=== PATIENT | male | born 1940 | race American Indian/Alaskan Native ===

== ENCOUNTER 2016-07-14 08:46 | Outpatient (CLI) | payer MEDICARE ==
[2016-07-14] MEDS ORDERED: XYLOCAINE TOPICAL 4% TP ONE (09:09)
== END 2016-07-14 08:47 | disposition home or self-care (01) ==
LOC: WOUND 08:46
PROVIDERS: ATTEND Podiatrist
DX: T87.89 Other complications of amputation stump (principal); E11.622 Type 2 diabetes mellitus with other skin ulcer; L97.811 Non-pressure chronic ulcer of other part of right lower leg limited to breakdown of skin; I10 Essential (primary) hypertension; F03.90 Unspecified dementia, unspecified severity, without behavioral disturbance, psychotic disturbance, mood disturbance, and anxiety; E78.5 Hyperlipidemia, unspecified; Z86.73 Personal history of transient ischemic attack (TIA), and cerebral infarction without residual deficits; Z87.891 Personal history of nicotine dependence; Z89.512 Acquired absence of left leg below knee; Y83.5 Amputation of limb(s) as the cause of abnormal reaction of the patient, or of later complication, without mention of misadventure at the time of the procedure
CPT/HCPCS: 87075; 87116

== ENCOUNTER 2016-07-21 08:39 | Outpatient (CLI) | payer MEDICARE ==
[2016-07-21] MEDS ORDERED: XYLOCAINE TOPICAL 4% TP ONE ×2 (09:04→14:03)
== END 2016-07-21 08:40 | disposition home or self-care (01) ==
LOC: WOUND 08:39
PROVIDERS: ATTEND Surgery
DX: T87.89 Other complications of amputation stump (principal); E11.622 Type 2 diabetes mellitus with other skin ulcer; L97.811 Non-pressure chronic ulcer of other part of right lower leg limited to breakdown of skin; I10 Essential (primary) hypertension; E78.5 Hyperlipidemia, unspecified; F15.90 Other stimulant use, unspecified, uncomplicated; F03.90 Unspecified dementia, unspecified severity, without behavioral disturbance, psychotic disturbance, mood disturbance, and anxiety; Z86.73 Personal history of transient ischemic attack (TIA), and cerebral infarction without residual deficits; Z87.891 Personal history of nicotine dependence; Y83.5 Amputation of limb(s) as the cause of abnormal reaction of the patient, or of later complication, without mention of misadventure at the time of the procedure

== ENCOUNTER 2016-08-05 08:00 | Outpatient (CLI) | payer MEDICARE ==
[2016-08-05] MEDS ORDERED: XYLOCAINE TOPICAL 4% TP ONE ×2 (08:35→09:00)
== END 2016-08-05 08:01 | disposition home or self-care (01) ==
LOC: WOUND 08:00
PROVIDERS: ATTEND Surgery
DX: T87.89 Other complications of amputation stump (principal); E11.622 Type 2 diabetes mellitus with other skin ulcer; L97.812 Non-pressure chronic ulcer of other part of right lower leg with fat layer exposed; F03.90 Unspecified dementia, unspecified severity, without behavioral disturbance, psychotic disturbance, mood disturbance, and anxiety; I10 Essential (primary) hypertension; E78.5 Hyperlipidemia, unspecified; Z86.73 Personal history of transient ischemic attack (TIA), and cerebral infarction without residual deficits; Z87.891 Personal history of nicotine dependence; Y83.5 Amputation of limb(s) as the cause of abnormal reaction of the patient, or of later complication, without mention of misadventure at the time of the procedure

== ENCOUNTER 2016-08-12 08:20 | Outpatient (CLI) | payer MEDICARE ==
[2016-08-12] MEDS ORDERED: XYLOCAINE TOPICAL 4% TP ONE ×2 (08:40→10:00)
== END 2016-08-12 08:21 | disposition home or self-care (01) ==
LOC: WOUND 08:20
PROVIDERS: ATTEND Surgery
DX: T87.89 Other complications of amputation stump (principal); E11.622 Type 2 diabetes mellitus with other skin ulcer; L97.812 Non-pressure chronic ulcer of other part of right lower leg with fat layer exposed; F03.90 Unspecified dementia, unspecified severity, without behavioral disturbance, psychotic disturbance, mood disturbance, and anxiety; I10 Essential (primary) hypertension; E78.5 Hyperlipidemia, unspecified; Z86.73 Personal history of transient ischemic attack (TIA), and cerebral infarction without residual deficits; Z87.891 Personal history of nicotine dependence; Y83.5 Amputation of limb(s) as the cause of abnormal reaction of the patient, or of later complication, without mention of misadventure at the time of the procedure
CPT/HCPCS: 99214; G0463

== ENCOUNTER 2016-08-28 09:26 | Outpatient (CLI) | payer MEDICARE ==
[2016-08-28] MEDS ORDERED: XYLOCAINE TOPICAL 4% TP ONE (10:02)
== END 2016-08-28 09:27 | disposition home or self-care (01) ==
LOC: WOUND 09:26
PROVIDERS: ATTEND Podiatrist
DX: T87.89 Other complications of amputation stump (principal); E11.622 Type 2 diabetes mellitus with other skin ulcer; L97.813 Non-pressure chronic ulcer of other part of right lower leg with necrosis of muscle; F03.90 Unspecified dementia, unspecified severity, without behavioral disturbance, psychotic disturbance, mood disturbance, and anxiety; I10 Essential (primary) hypertension; E78.5 Hyperlipidemia, unspecified; Z86.73 Personal history of transient ischemic attack (TIA), and cerebral infarction without residual deficits; Z87.891 Personal history of nicotine dependence; Y83.5 Amputation of limb(s) as the cause of abnormal reaction of the patient, or of later complication, without mention of misadventure at the time of the procedure

== ENCOUNTER 2016-09-16 08:00 | Outpatient (CLI) | payer MEDICARE ==
[2016-09-16] MEDS ORDERED: XYLOCAINE TOPICAL 4% TP ONE ×2 (08:19→08:25)
[2016-09-16] MEDS ORDERED: SILVER NITRATE TP ONE ×2 (08:30→09:06)
== END 2016-09-16 08:01 | disposition home or self-care (01) ==
LOC: WOUND 08:00
PROVIDERS: ATTEND Surgery
DX: T87.89 Other complications of amputation stump (principal); E11.621 Type 2 diabetes mellitus with foot ulcer; L97.511 Non-pressure chronic ulcer of other part of right foot limited to breakdown of skin; F03.90 Unspecified dementia, unspecified severity, without behavioral disturbance, psychotic disturbance, mood disturbance, and anxiety; I10 Essential (primary) hypertension; E78.5 Hyperlipidemia, unspecified; Z86.73 Personal history of transient ischemic attack (TIA), and cerebral infarction without residual deficits; Z87.891 Personal history of nicotine dependence; Y83.5 Amputation of limb(s) as the cause of abnormal reaction of the patient, or of later complication, without mention of misadventure at the time of the procedure

== ENCOUNTER 2016-09-21 08:49 | Emergency (ER) | payer MEDICARE ==
[2016-09-21] MEDS ORDERED: NACL 0.9% 1000 ML 1,000 ML IV ONE (09:29)
--- NOTE | 2016-09-21 09:31 | Emergency Department Report ---
ED General Adult HPI - General Chief complaint: Hypoglycemia Stated complaint: HYPOGLYCEMIA Time Seen by Provider: 09/21/16 09:12 Source: patient, EMS Mode of arrival: Stretcher Limitations: No Limitations - History of Present Illness Initial comments: Patient was at home and EMS was called due to confusion. On EMS arrival patient 's blood sugar was 25 and he was combative. Patient was restrained by EMS. Once he was restrained they were able to obtain IV and gave him D50. His glucose here on arrival is 135 he has no complaints currently. He states that h he was given his insulin this morning but he did not eat. He otherwise appears at his baseline. He denies fevers chills nausea vomiting diarrhea. -: Sudden Radiation: non-radiation Consistency: now resolved Improves with: eating Worsens with: none Associated Symptoms: confusion, diaphoresis, weakness. denies: nausea/vomiting Treatments Prior to Arrival: other (D50) - Related Data Previous Rx's Medication Instructions Recorded Last Taken Type Insulin Glargine [Lantus VIAL] 20 units SQ QHS #300 units 06/04/16 Unknown Rx Insulin Lispro [HumaLOG VIAL] 6 units SQ BIDAC #300 vial 06/04/16 Unknown Rx Lisinopril [Zestril TAB] 40 mg PO QDAY #30 tablet 06/04/16 Unknown Rx amLODIPine [Norvasc] 10 mg PO DAILY #30 tablet 06/04/16 Unknown Rx Allergies Allergy/AdvReac Type Severity Reaction Status Date / Time No Known Allergies Allergy Unverified 03/11/13 13:46 ED Review of Systems ROS: Stated complaint: HYPOGLYCEMIA Other details as noted in HPI Constitutional: no symptoms reported, see HPI Eyes: denies: eye pain, eye discharge ENT: denies: ear pain, throat pain Respiratory: denies: see HPI, cough Cardiovascular: denies: chest pain, dyspnea on exertion Gastrointestinal: denies: abdominal pain, nausea, vomiting Musculoskeletal: denies: back pain Neurological: as per HPI, confusion. denies: headache, weakness Psychiatric: denies: anxiety, depression ED Past Medical Hx - Past Medical History Previous Medical History?: Yes Hx CVA: Yes Hx Diabetes: Yes Hx Dementia: Yes Hx HIV: No Additional medical history: ichtheosis - Surgical History Past Surgical History?: Yes Additional Surgical History: bilat bka - Social History Smoking Status: Never Smoker Substance Use Type: None - Medications Home Medications: Home Medications Medication Instructions Recorded Confirmed Last Taken Type Insulin Glargine [Lantus VIAL] 20 units SQ QHS #300 units 06/04/16 Unknown Rx Insulin Lispro [HumaLOG VIAL] 6 units SQ BIDAC #300 vial 06/04/16 Unknown Rx Lisinopril [Zestril TAB] 40 mg PO QDAY #30 tablet 06/04/16 Unknown Rx amLODIPine [Norvasc] 10 mg PO DAILY #30 tablet 06/04/16 Unknown Rx ED Physical Exam - General Limitations: No Limitations General appearance: alert, in no apparent distress - Head Head exam: Present: atraumatic, normocephalic - Eye Eye exam: Present: normal appearance, PERRL - ENT ENT exam: Present: normal exam, normal orophraynx - Respiratory Respiratory exam: Present: normal lung sounds bilaterally, respiratory distress - Cardiovascular Cardiovascular Exam: Present: regular rate, normal rhythm - GI/Abdominal GI/Abdominal exam: Present: soft. Absent: distended, tenderness - Extremities Exam Extremities exam: Present: other (his arms are contracted. He has bilateral AKA 's.) - Back Exam Back exam: Absent: tenderness - Neurological Exam Neurological exam: Present: alert, oriented X3 - Psychiatric Psychiatric exam: Present: normal affect, normal mood - Skin Skin exam: Present: warm, dry ED Course Vital Signs 09/21/16 09/21/16 09/21/16 09:12 11:37 13:02 Temperature 97.9 F Pulse Rate 98 H 94 H Respiratory 16 16 16 Rate Blood Pressure 179/98 Blood Pressure 163/85 [Left] O2 Sat by Pulse 98 98 Oximetry ED Medical Decision Making - Lab Data Result diagrams: 09/21/16 09:34 09/21/16 09:34 Laboratory Results - last 24 hr 09/21/16 09/21/16 09/21/16 09:08 09:34 09:34 WBC 8.1 RBC 4.91 Hgb 13.1 Hct 39.2 MCV 80 L MCH 27 L MCHC 33 RDW 17.4 H Plt Count 462 H Lymph % (Auto) 17.4 Mckenzie % (Auto) 5.8 Eos % (Auto) 2.1 Baso % (Auto) 0.7 Lymph # 1.4 Mckenzie # 0.5 Eos # 0.2 Baso # 0.1 Seg Neutrophils % 74.0 H Seg Neutrophils # 6.0 Sodium 143 Potassium 4.2 Chloride 106.4 Carbon Dioxide 24 Anion Gap 17 BUN 19 Creatinine 0.9 Estimated GFR > 60 BUN/Creatinine Ratio 21.11 Glucose 116 H POC Glucose 135 H Calcium 9.2 Laboratory Results - last 24 hr 09/21/16 09/21/16 09/21/16 09:08 09:34 09:34 WBC 8.1 RBC 4.91 Hgb 13.1 Hct 39.2 MCV 80 L MCH 27 L MCHC 33 RDW 17.4 H Plt Count 462 H Lymph % (Auto) 17.4 Mckenzie % (Auto) 5.8 Eos % (Auto) 2.1 Baso % (Auto) 0.7 Lymph # 1.4 Mckenzie # 0.5 Eos # 0.2 Baso # 0.1 Seg Neutrophils % 74.0 H Seg Neutrophils # 6.0 Sodium 143 Potassium 4.2 Chloride 106.4 Carbon Dioxide 24 Anion Gap 17 BUN 19 Creatinine 0.9 Estimated GFR > 60 BUN/Creatinine Ratio 21.11 Glucose 116 H POC Glucose 135 H Calcium 9.2 - Medical Decision Making Patient is a 76-year-old male with chronic medical issues she is here with hypoglycemic episode. Episode is now resolved. I suspect this is likely due to insulin administration without food consumption. Patient denies any current complaints. Plan to check CBC chemistry and UA along with chest x-ray to confirm that there are no other sources for his hyperglycemia. Assuming he is her normal plan to discharge patient home. Discussed case with patient did not eat this morning. He did not get insulin this morning according to the . He has had this happen before. Plan to discharge after UA. UA with several epithelial cells and WBCs. I think this is likely a colonization versus a poor catch. I do not suspect that he has UTI given no dysuria or no pain. I will not treat at this time. Critical Care Time: No Critical care attestation.: If time is entered above; I have spent that time in minutes in the direct care of this critically ill patient, excluding procedure time. ED Disposition Clinical Impression: Hypoglycemia Disposition: DC-01 TO HOME OR SELFCARE Is pt being admited?: No Does the pt Need Aspirin: No Condition: Stable Instructions: Diabetic Hypoglycemia (ED) Referrals: PRIMARY CARE, [Primary Care Provider] - 3-5 Days
[2016-09-21 09:57] LABS: Basophils % (Auto) 0.7 % (0.0-1.8); Eosinophils % (Auto) 2.1 % (0.0-4.3); Hematocrit 39.2 % (35.5-45.6); Hemoglobin 13.1 gm/dl (11.8-15.2); Mean Corpuscular HGB Conc 33 % (32-34); Mean Corpuscular Hemoglobin 27 pg (28-32); Mean Corpuscular Volume 80 fl (84-94); Platelet Count 462 K/mm3 (140-440); Red Blood Count 4.91 M/mm3 (3.65-5.03); Red Cell Distribution Width 17.4 % (13.2-15.2); White Blood Count 8.1 K/mm3 (4.5-11.0)
--- NOTE | 2016-09-21 10:03 | XRay Report ---
AP CHEST: Dizzy AP view of the chest demonstrates a normal mediastinal and cardiac contour with clear lungs and normal bony and soft tissue structures. IMPRESSION: Normal AP chest.
[2016-09-21 10:08] LABS: Anion Gap 17 mmol/L; BUN/Creatinine Ratio 21.11; Blood Urea Nitrogen 19 mg/dL (9-20); Calcium 9.2 mg/dL (8.4-10.2); Carbon Dioxide 24 mmol/L (22-30); Chloride 106.4 mmol/L (98-107); Glucose 116 mg/dL (75-100); Potassium 4.2 mmol/L (3.6-5.0); Sodium 143 mmol/L (137-145)
[2016-09-21 13:01] LABS: Bacteria,Urine 1+ /HPF (Negative); Bilirubin,Urine NEG (Negative); Blood,Urine NEG (Negative); Ketones,Urine NEG (Negative); Leukocyte Esterase,Urine NEG (Negative); Mucus,Urine FEW /HPF; Nitrite,Urine NEG (Negative); Protein,Urine <15 mg/dL mg/dL (Negative); Urobilinogen,Urine < 2.0 mg/dL (<2.0)
[2016-09-21 13:03] VITALS: BP 163/85
== END 2016-09-21 14:22 | disposition home or self-care (01) ==
LOC: ED 08:49
DX: E11.649 Type 2 diabetes mellitus with hypoglycemia without coma (principal); F03.90 Unspecified dementia, unspecified severity, without behavioral disturbance, psychotic disturbance, mood disturbance, and anxiety; Z86.73 Personal history of transient ischemic attack (TIA), and cerebral infarction without residual deficits; Z79.4 Long term (current) use of insulin
CPT/HCPCS: 36415; 71010; 80048; 81001; 82962; 85025; 96360; 96361; 99285; J7030

== ENCOUNTER 2016-09-30 09:17 | Outpatient (CLI) | payer MEDICARE ==
[2016-09-30] MEDS ORDERED: XYLOCAINE TOPICAL 4% TP ONE ×2 (09:39→09:41)
== END 2016-09-30 09:18 | disposition home or self-care (01) ==
LOC: WOUND 09:17
PROVIDERS: ATTEND Surgery
DX: T87.89 Other complications of amputation stump (principal); E11.622 Type 2 diabetes mellitus with other skin ulcer; L97.813 Non-pressure chronic ulcer of other part of right lower leg with necrosis of muscle; I10 Essential (primary) hypertension; E78.5 Hyperlipidemia, unspecified; F03.90 Unspecified dementia, unspecified severity, without behavioral disturbance, psychotic disturbance, mood disturbance, and anxiety; Z86.73 Personal history of transient ischemic attack (TIA), and cerebral infarction without residual deficits; Z87.891 Personal history of nicotine dependence; Y83.5 Amputation of limb(s) as the cause of abnormal reaction of the patient, or of later complication, without mention of misadventure at the time of the procedure
CPT/HCPCS: 97597; 97598

== ENCOUNTER 2016-10-07 09:29 | Outpatient (CLI) | payer MEDICARE ==
[2016-10-07] MEDS ORDERED: XYLOCAINE TOPICAL 4% TP ONE ×2 (09:56→10:08)
== END 2016-10-07 09:30 | disposition home or self-care (01) ==
LOC: WOUND 09:29
PROVIDERS: ATTEND Surgery
DX: T87.89 Other complications of amputation stump (principal); E11.622 Type 2 diabetes mellitus with other skin ulcer; L97.813 Non-pressure chronic ulcer of other part of right lower leg with necrosis of muscle; I10 Essential (primary) hypertension; E78.5 Hyperlipidemia, unspecified; F03.90 Unspecified dementia, unspecified severity, without behavioral disturbance, psychotic disturbance, mood disturbance, and anxiety; Z86.73 Personal history of transient ischemic attack (TIA), and cerebral infarction without residual deficits; Z87.891 Personal history of nicotine dependence; Y83.5 Amputation of limb(s) as the cause of abnormal reaction of the patient, or of later complication, without mention of misadventure at the time of the procedure

== ENCOUNTER 2016-10-14 09:07 | Outpatient (CLI) | payer MEDICARE ==
[2016-10-14] MEDS ORDERED: XYLOCAINE TOPICAL 4% TP ONE (09:51)
[2016-10-14] MEDS ORDERED: SILVER NITRATE TP ONE ×2 (10:21→15:29)
== END 2016-10-14 09:08 | disposition home or self-care (01) ==
LOC: WOUND 09:07
PROVIDERS: ATTEND Surgery
DX: T87.89 Other complications of amputation stump (principal); E11.622 Type 2 diabetes mellitus with other skin ulcer; L97.811 Non-pressure chronic ulcer of other part of right lower leg limited to breakdown of skin; E78.5 Hyperlipidemia, unspecified; F03.90 Unspecified dementia, unspecified severity, without behavioral disturbance, psychotic disturbance, mood disturbance, and anxiety; I10 Essential (primary) hypertension; Z86.73 Personal history of transient ischemic attack (TIA), and cerebral infarction without residual deficits; Z87.891 Personal history of nicotine dependence; Y83.5 Amputation of limb(s) as the cause of abnormal reaction of the patient, or of later complication, without mention of misadventure at the time of the procedure

== ENCOUNTER 2016-10-21 09:07 | Outpatient (CLI) | payer MEDICARE ==
[2016-10-21] MEDS ORDERED: XYLOCAINE TOPICAL 4% TP ONE ×2 (09:53→11:59)
== END 2016-10-21 09:08 | disposition home or self-care (01) ==
LOC: WOUND 09:07
PROVIDERS: ATTEND Surgery
DX: T87.89 Other complications of amputation stump (principal); E11.622 Type 2 diabetes mellitus with other skin ulcer; L97.813 Non-pressure chronic ulcer of other part of right lower leg with necrosis of muscle; F03.90 Unspecified dementia, unspecified severity, without behavioral disturbance, psychotic disturbance, mood disturbance, and anxiety; E78.5 Hyperlipidemia, unspecified; I10 Essential (primary) hypertension; Z86.73 Personal history of transient ischemic attack (TIA), and cerebral infarction without residual deficits; Z87.891 Personal history of nicotine dependence; Y83.5 Amputation of limb(s) as the cause of abnormal reaction of the patient, or of later complication, without mention of misadventure at the time of the procedure

== ENCOUNTER 2016-10-28 09:20 | Outpatient (CLI) | payer MEDICARE ==
[2016-10-28] MEDS ORDERED: NACL 0.9% 500 ML IR ONE (09:51)
[2016-10-28] MEDS ORDERED: XYLOCAINE TOPICAL 4% TP ONE (10:00)
[2016-10-28] MEDS ORDERED: NACL 0.9% IR ONE (13:47)
== END 2016-10-28 09:21 | disposition home or self-care (01) ==
LOC: WOUND 09:20
PROVIDERS: ATTEND Surgery
DX: T87.89 Other complications of amputation stump (principal); E11.622 Type 2 diabetes mellitus with other skin ulcer; L97.813 Non-pressure chronic ulcer of other part of right lower leg with necrosis of muscle; F03.90 Unspecified dementia, unspecified severity, without behavioral disturbance, psychotic disturbance, mood disturbance, and anxiety; I10 Essential (primary) hypertension; E78.5 Hyperlipidemia, unspecified; Z86.73 Personal history of transient ischemic attack (TIA), and cerebral infarction without residual deficits; Z87.891 Personal history of nicotine dependence; Y83.8 Other surgical procedures as the cause of abnormal reaction of the patient, or of later complication, without mention of misadventure at the time of the procedure

== ENCOUNTER 2016-11-04 09:26 | Outpatient (CLI) | payer MEDICARE ==
[2016-11-04] MEDS ORDERED: XYLOCAINE TOPICAL 4% TP ONE (09:33)
== END 2016-11-04 09:27 | disposition home or self-care (01) ==
LOC: WOUND 09:26
PROVIDERS: ATTEND Surgery
DX: T87.89 Other complications of amputation stump (principal); E11.622 Type 2 diabetes mellitus with other skin ulcer; L97.813 Non-pressure chronic ulcer of other part of right lower leg with necrosis of muscle; F03.90 Unspecified dementia, unspecified severity, without behavioral disturbance, psychotic disturbance, mood disturbance, and anxiety; E78.5 Hyperlipidemia, unspecified; I10 Essential (primary) hypertension; Z86.73 Personal history of transient ischemic attack (TIA), and cerebral infarction without residual deficits; Z87.891 Personal history of nicotine dependence; Y83.5 Amputation of limb(s) as the cause of abnormal reaction of the patient, or of later complication, without mention of misadventure at the time of the procedure

== ENCOUNTER 2016-11-11 09:32 | Outpatient (CLI) | payer MEDICARE ==
[2016-11-11] MEDS ORDERED: XYLOCAINE TOPICAL 4% TP ONE ×2 (10:05→11:23)
== END 2016-11-11 09:33 | disposition home or self-care (01) ==
LOC: WOUND 09:32
PROVIDERS: ATTEND Surgery
DX: T87.89 Other complications of amputation stump (principal); E11.622 Type 2 diabetes mellitus with other skin ulcer; L97.811 Non-pressure chronic ulcer of other part of right lower leg limited to breakdown of skin; F03.90 Unspecified dementia, unspecified severity, without behavioral disturbance, psychotic disturbance, mood disturbance, and anxiety; I10 Essential (primary) hypertension; E78.5 Hyperlipidemia, unspecified; Z86.73 Personal history of transient ischemic attack (TIA), and cerebral infarction without residual deficits; Z87.891 Personal history of nicotine dependence; Z89.512 Acquired absence of left leg below knee; Y83.5 Amputation of limb(s) as the cause of abnormal reaction of the patient, or of later complication, without mention of misadventure at the time of the procedure

== ENCOUNTER 2016-11-18 09:02 | Outpatient (CLI) | payer MEDICARE ==
[2016-11-18] MEDS ORDERED: XYLOCAINE TOPICAL 4% TP ONE (09:45)
== END 2016-11-18 09:03 | disposition home or self-care (01) ==
LOC: WOUND 09:02
PROVIDERS: ATTEND Surgery
DX: T87.89 Other complications of amputation stump (principal); E11.622 Type 2 diabetes mellitus with other skin ulcer; L97.811 Non-pressure chronic ulcer of other part of right lower leg limited to breakdown of skin; F03.90 Unspecified dementia, unspecified severity, without behavioral disturbance, psychotic disturbance, mood disturbance, and anxiety; I10 Essential (primary) hypertension; E78.5 Hyperlipidemia, unspecified; Z86.73 Personal history of transient ischemic attack (TIA), and cerebral infarction without residual deficits; Z87.891 Personal history of nicotine dependence; Z89.512 Acquired absence of left leg below knee; Y83.5 Amputation of limb(s) as the cause of abnormal reaction of the patient, or of later complication, without mention of misadventure at the time of the procedure
CPT/HCPCS: 99215; G0463

== ENCOUNTER 2016-11-25 09:18 | Outpatient (CLI) | payer MEDICARE ==
[2016-11-25] MEDS ORDERED: XYLOCAINE TOPICAL 4% TP ONE (09:36)
[2016-11-26] MEDS ORDERED: XYLOCAINE TOPICAL 4% TP ONE (10:02)
== END 2016-11-25 09:19 | disposition home or self-care (01) ==
LOC: WOUND 09:18
PROVIDERS: ATTEND Surgery
DX: T87.89 Other complications of amputation stump (principal); E11.622 Type 2 diabetes mellitus with other skin ulcer; L97.811 Non-pressure chronic ulcer of other part of right lower leg limited to breakdown of skin; E78.5 Hyperlipidemia, unspecified; I10 Essential (primary) hypertension; F03.90 Unspecified dementia, unspecified severity, without behavioral disturbance, psychotic disturbance, mood disturbance, and anxiety; Z86.73 Personal history of transient ischemic attack (TIA), and cerebral infarction without residual deficits; Z87.891 Personal history of nicotine dependence; Y83.5 Amputation of limb(s) as the cause of abnormal reaction of the patient, or of later complication, without mention of misadventure at the time of the procedure

== ENCOUNTER 2016-12-02 09:27 | Outpatient (CLI) | payer MEDICARE ==
[2016-12-02] MEDS ORDERED: XYLOCAINE TOPICAL 4% TP ONE ×2 (10:17)
== END 2016-12-02 09:28 | disposition home or self-care (01) ==
LOC: WOUND 09:27
PROVIDERS: ATTEND Surgery
DX: T87.89 Other complications of amputation stump (principal); E11.622 Type 2 diabetes mellitus with other skin ulcer; L97.811 Non-pressure chronic ulcer of other part of right lower leg limited to breakdown of skin; F03.90 Unspecified dementia, unspecified severity, without behavioral disturbance, psychotic disturbance, mood disturbance, and anxiety; I10 Essential (primary) hypertension; E78.5 Hyperlipidemia, unspecified; Z87.891 Personal history of nicotine dependence; Z86.73 Personal history of transient ischemic attack (TIA), and cerebral infarction without residual deficits; Y83.8 Other surgical procedures as the cause of abnormal reaction of the patient, or of later complication, without mention of misadventure at the time of the procedure

== ENCOUNTER 2016-12-09 09:16 | Outpatient (CLI) | payer MEDICARE ==
[2016-12-09] MEDS ORDERED: XYLOCAINE TOPICAL 4% TP ONE ×2 (09:29→09:59)
[2016-12-09] MEDS ORDERED: NACL 0.9% IR ONE (09:59)
[2016-12-09] MEDS ORDERED: NACL 0.9% 500 ML IR ONE (10:31)
== END 2016-12-09 09:17 | disposition home or self-care (01) ==
LOC: WOUND 09:16
PROVIDERS: ATTEND Surgery
DX: T87.89 Other complications of amputation stump (principal); E11.622 Type 2 diabetes mellitus with other skin ulcer; L97.813 Non-pressure chronic ulcer of other part of right lower leg with necrosis of muscle; F03.90 Unspecified dementia, unspecified severity, without behavioral disturbance, psychotic disturbance, mood disturbance, and anxiety; E78.5 Hyperlipidemia, unspecified; I10 Essential (primary) hypertension; Z86.73 Personal history of transient ischemic attack (TIA), and cerebral infarction without residual deficits; Z87.891 Personal history of nicotine dependence; Y83.5 Amputation of limb(s) as the cause of abnormal reaction of the patient, or of later complication, without mention of misadventure at the time of the procedure
CPT/HCPCS: 99215; G0463

== ENCOUNTER 2016-12-16 09:13 | Outpatient (CLI) | payer MEDICARE ==
[2016-12-16] MEDS ORDERED: XYLOCAINE TOPICAL 4% TP ONE ×2 (09:41→09:55)
== END 2016-12-16 09:14 | disposition home or self-care (01) ==
LOC: WOUND 09:13
PROVIDERS: ATTEND Surgery
DX: T87.89 Other complications of amputation stump (principal); E11.622 Type 2 diabetes mellitus with other skin ulcer; L97.813 Non-pressure chronic ulcer of other part of right lower leg with necrosis of muscle; F03.90 Unspecified dementia, unspecified severity, without behavioral disturbance, psychotic disturbance, mood disturbance, and anxiety; I10 Essential (primary) hypertension; E78.5 Hyperlipidemia, unspecified; Z86.73 Personal history of transient ischemic attack (TIA), and cerebral infarction without residual deficits; Z87.891 Personal history of nicotine dependence; Y83.5 Amputation of limb(s) as the cause of abnormal reaction of the patient, or of later complication, without mention of misadventure at the time of the procedure
CPT/HCPCS: 99215; G0463

== ENCOUNTER 2016-12-23 09:10 | Outpatient (CLI) | payer MEDICARE ==
[2016-12-23] MEDS ORDERED: XYLOCAINE TOPICAL 4% TP ONE (09:21)
[2016-12-23] MEDS ORDERED: SILVER NITRATE TP ONE ×2 (10:23→11:24)
== END 2016-12-23 09:11 | disposition home or self-care (01) ==
LOC: WOUND 09:10
PROVIDERS: ATTEND Surgery
DX: T87.89 Other complications of amputation stump (principal); E11.622 Type 2 diabetes mellitus with other skin ulcer; L97.821 Non-pressure chronic ulcer of other part of left lower leg limited to breakdown of skin; L97.811 Non-pressure chronic ulcer of other part of right lower leg limited to breakdown of skin; F03.90 Unspecified dementia, unspecified severity, without behavioral disturbance, psychotic disturbance, mood disturbance, and anxiety; I10 Essential (primary) hypertension; E78.5 Hyperlipidemia, unspecified; Z87.891 Personal history of nicotine dependence; Z86.73 Personal history of transient ischemic attack (TIA), and cerebral infarction without residual deficits; Y83.5 Amputation of limb(s) as the cause of abnormal reaction of the patient, or of later complication, without mention of misadventure at the time of the procedure
CPT/HCPCS: 87075; 87076; 87116; 87186

== ENCOUNTER 2016-12-30 09:38 | Outpatient (CLI) | payer MEDICARE ==
[2016-12-30] MEDS ORDERED: XYLOCAINE TOPICAL 4% TP ONE ×2 (10:15→10:26)
== END 2016-12-30 09:39 | disposition home or self-care (01) ==
LOC: WOUND 09:38
PROVIDERS: ATTEND Surgery
DX: T87.89 Other complications of amputation stump (principal); E11.622 Type 2 diabetes mellitus with other skin ulcer; L97.821 Non-pressure chronic ulcer of other part of left lower leg limited to breakdown of skin; L97.813 Non-pressure chronic ulcer of other part of right lower leg with necrosis of muscle; F03.90 Unspecified dementia, unspecified severity, without behavioral disturbance, psychotic disturbance, mood disturbance, and anxiety; E78.5 Hyperlipidemia, unspecified; I10 Essential (primary) hypertension; Z86.73 Personal history of transient ischemic attack (TIA), and cerebral infarction without residual deficits; Z87.891 Personal history of nicotine dependence; Y83.5 Amputation of limb(s) as the cause of abnormal reaction of the patient, or of later complication, without mention of misadventure at the time of the procedure

== ENCOUNTER 2016-12-30 11:46 | Outpatient (CLI) | payer MEDICARE ==
[2016-12-30 12:51] LABS: Hematocrit 31.5 % (35.5-45.6); Hemoglobin 10.8 gm/dl (11.8-15.2); Mean Corpuscular HGB Conc 34 % (32-34); Mean Corpuscular Volume 75 fl (84-94); Platelet Count 665 K/mm3 (140-440); Red Blood Count 4.19 M/mm3 (3.65-5.03); White Blood Count 11.3 K/mm3 (4.5-11.0)
[2016-12-30 12:53] LABS: Mean Corpuscular Hemoglobin 26 pg (28-32)
[2016-12-30 13:02] LABS: INR 1.06 (0.87-1.13)
[2016-12-30 13:03] LABS: Partial Thromboplastin Time 33.4 Sec. (24.2-36.6)
[2016-12-30 13:07] LABS: Alanine Aminotransferase 7 units/L (7-56); Albumin/Globulin Ratio 0.6 %; Alkaline Phosphatase 99 units/L (35-129); Anion Gap 20 mmol/L; BUN/Creatinine Ratio 14; Blood Urea Nitrogen 18 mg/dL (9-20); Calcium 9.1 mg/dL (8.4-10.2); Carbon Dioxide 21 mmol/L (22-30); Chloride 98.3 mmol/L (98-107); Glucose 237 mg/dL (75-100); Potassium 4.7 mmol/L (3.6-5.0); Sodium 135 mmol/L (137-145); Total Protein 7.8 g/dL (6.3-8.2)
== END 2016-12-30 11:47 | disposition home or self-care (01) ==
LOC: CARD 11:46
PROVIDERS: ATTEND Surgery
DX: E11.9 Type 2 diabetes mellitus without complications (principal); I49.3 Ventricular premature depolarization; R00.0 Tachycardia, unspecified; Z89.612 Acquired absence of left leg above knee
CPT/HCPCS: 36415; 80053; 85027; 85610; 85730; 93005; 93010

== ENCOUNTER 2017-01-06 09:21 | Outpatient (CLI) | payer MEDICARE ==
[2017-01-06] MEDS ORDERED: XYLOCAINE TOPICAL 4% TP ONE (10:03)
== END 2017-01-06 09:22 | disposition home or self-care (01) ==
LOC: WOUND 09:21
PROVIDERS: ATTEND Surgery
DX: T87.89 Other complications of amputation stump (principal); E11.622 Type 2 diabetes mellitus with other skin ulcer; L97.811 Non-pressure chronic ulcer of other part of right lower leg limited to breakdown of skin; L97.821 Non-pressure chronic ulcer of other part of left lower leg limited to breakdown of skin; F03.90 Unspecified dementia, unspecified severity, without behavioral disturbance, psychotic disturbance, mood disturbance, and anxiety; I10 Essential (primary) hypertension; E78.5 Hyperlipidemia, unspecified; Z86.73 Personal history of transient ischemic attack (TIA), and cerebral infarction without residual deficits; Z87.891 Personal history of nicotine dependence; Y83.5 Amputation of limb(s) as the cause of abnormal reaction of the patient, or of later complication, without mention of misadventure at the time of the procedure

== ENCOUNTER 2017-01-20 09:26 | Outpatient (CLI) | payer MEDICARE ==
[2017-01-20] MEDS ORDERED: XYLOCAINE TOPICAL 4% TP ONE ×2 (09:41→09:49)
== END 2017-01-20 09:27 | disposition home or self-care (01) ==
LOC: WOUND 09:26
PROVIDERS: ATTEND Surgery
DX: T87.89 Other complications of amputation stump (principal); E11.622 Type 2 diabetes mellitus with other skin ulcer; L97.813 Non-pressure chronic ulcer of other part of right lower leg with necrosis of muscle; L97.224 Non-pressure chronic ulcer of left calf with necrosis of bone; I10 Essential (primary) hypertension; E78.5 Hyperlipidemia, unspecified; F03.90 Unspecified dementia, unspecified severity, without behavioral disturbance, psychotic disturbance, mood disturbance, and anxiety; Z86.73 Personal history of transient ischemic attack (TIA), and cerebral infarction without residual deficits; Z87.891 Personal history of nicotine dependence; Y83.5 Amputation of limb(s) as the cause of abnormal reaction of the patient, or of later complication, without mention of misadventure at the time of the procedure

== ENCOUNTER 2017-01-26 11:32 | Emergency (ER) | payer MEDICARE | END 2017-01-26 11:33 | disposition left against medical advice (07) | LOC: ED 11:32 | DX: R41.82 Altered mental status, unspecified (principal); Z53.21 Procedure and treatment not carried out due to patient leaving prior to being seen by health care provider ==

== ENCOUNTER 2017-02-03 09:48 | Outpatient (CLI) | payer MEDICARE ==
[2017-02-03] MEDS ORDERED: XYLOCAINE TOPICAL 4% TP ONE ×2 (09:53→10:05)
== END 2017-02-03 09:49 | disposition home or self-care (01) ==
LOC: WOUND 09:48
PROVIDERS: ATTEND Surgery
DX: T87.89 Other complications of amputation stump (principal); E11.622 Type 2 diabetes mellitus with other skin ulcer; L97.813 Non-pressure chronic ulcer of other part of right lower leg with necrosis of muscle; L97.224 Non-pressure chronic ulcer of left calf with necrosis of bone; F03.90 Unspecified dementia, unspecified severity, without behavioral disturbance, psychotic disturbance, mood disturbance, and anxiety; I10 Essential (primary) hypertension; E78.5 Hyperlipidemia, unspecified; Z86.73 Personal history of transient ischemic attack (TIA), and cerebral infarction without residual deficits; Z87.891 Personal history of nicotine dependence; Y83.5 Amputation of limb(s) as the cause of abnormal reaction of the patient, or of later complication, without mention of misadventure at the time of the procedure
CPT/HCPCS: 99214; G0463

== ENCOUNTER 2017-02-10 08:53 | Outpatient (CLI) | payer MEDICARE ==
[2017-02-10] MEDS ORDERED: XYLOCAINE TOPICAL 4% TP ONE ×2 (10:02→11:48)
== END 2017-02-10 08:54 | disposition home or self-care (01) ==
LOC: WOUND 08:53
PROVIDERS: ATTEND Surgery
DX: T87.89 Other complications of amputation stump (principal); E11.622 Type 2 diabetes mellitus with other skin ulcer; L97.813 Non-pressure chronic ulcer of other part of right lower leg with necrosis of muscle; F03.90 Unspecified dementia, unspecified severity, without behavioral disturbance, psychotic disturbance, mood disturbance, and anxiety; I10 Essential (primary) hypertension; E78.5 Hyperlipidemia, unspecified; Z86.73 Personal history of transient ischemic attack (TIA), and cerebral infarction without residual deficits; Z87.891 Personal history of nicotine dependence; Y83.5 Amputation of limb(s) as the cause of abnormal reaction of the patient, or of later complication, without mention of misadventure at the time of the procedure

== ENCOUNTER 2017-02-17 09:38 | Outpatient (CLI) | payer MEDICARE ==
[2017-02-17] MEDS ORDERED: XYLOCAINE TOPICAL 4% TP ONE ×2 (10:21→12:00)
== END 2017-02-17 09:39 | disposition home or self-care (01) ==
LOC: WOUND 09:38
PROVIDERS: ATTEND Surgery
DX: T87.89 Other complications of amputation stump (principal); E11.622 Type 2 diabetes mellitus with other skin ulcer; L97.813 Non-pressure chronic ulcer of other part of right lower leg with necrosis of muscle; L97.224 Non-pressure chronic ulcer of left calf with necrosis of bone; I10 Essential (primary) hypertension; E78.5 Hyperlipidemia, unspecified; F03.90 Unspecified dementia, unspecified severity, without behavioral disturbance, psychotic disturbance, mood disturbance, and anxiety; Z87.891 Personal history of nicotine dependence; Z86.73 Personal history of transient ischemic attack (TIA), and cerebral infarction without residual deficits; Y83.5 Amputation of limb(s) as the cause of abnormal reaction of the patient, or of later complication, without mention of misadventure at the time of the procedure
CPT/HCPCS: 99215; G0463

== ENCOUNTER 2017-02-22 12:22 | Observation (INO) | payer MEDICARE ==
[2017-02-22] MEDS ORDERED: NACL BACTERIOSTATIC INFILTRATI ONE (14:02)
--- NOTE | 2017-02-22 14:08 | Anesthesia Consultation ---
Anesthesia Consult and Med Hx Date of service: 02/22/17 - Airway Anesthetic Teeth Evaluation: Dentures ROM Head & Neck: Adequate Mental/Hyoid Distance: Adequate Mallampati Class: Class II Intubation Access Assessment: Probably Good - Pulmonary Exam CTA: Yes - Cardiac Exam Cardiac Exam: RRR - Pre-Operative Health Status ASA Pre-Surgery Classification: ASA3 Proposed Anesthetic Plan: General - Pulmonary Hx Asthma: No COPD: No Hx Pneumonia: No - Cardiovascular System Hx Hypertension: Yes - Central Nervous System CVA: Yes (2017) Hx Psychiatric Problems: Yes (Dementia) - Endocrine Hx End Stage Renal Disease: No - Other Systems Hx Alcohol Use: No Hx Substance Use: No Hx Cancer: No
--- NOTE | 2017-02-22 14:08 | Anesthesia Day of Surgery ---
Anesthesia Day of Surgery - Day of Surgery Patient Examined: Yes Patient H&P Reviewed: Yes Patient is NPO: Yes
[2017-02-22 14:32] LABS: Basophils % (Auto) 1.2 % (0.0-1.8); Eosinophils % (Auto) 1.7 % (0.0-4.3); Hematocrit 29.4 % (35.5-45.6); Hemoglobin 9.9 gm/dl (11.8-15.2); Mean Corpuscular HGB Conc 34 % (32-34); Mean Corpuscular Volume 76 fl (84-94); Platelet Count 615 K/mm3 (140-440); Red Blood Count 3.85 M/mm3 (3.65-5.03); Red Cell Distribution Width 17.2 % (13.2-15.2); White Blood Count 8.4 K/mm3 (4.5-11.0)
[2017-02-22] MEDS: NACL 0.9% 1000 ML 1,000 ML IV SCH (14:45)
[2017-02-22 14:46] LABS: Mean Corpuscular Hemoglobin 26 pg (28-32)
[2017-02-22] MEDS ORDERED: LACTATED RINGERS 1,000 ML IV SCH (15:00)
[2017-02-22] MEDS ORDERED: PEPCID PO NR (15:00)
[2017-02-22] MEDS ORDERED: AMIDATE IV ONE (20:20)
[2017-02-22] MEDS ORDERED: XYLOCAINE MPF 2% ONE (20:20)
[2017-02-22] MEDS ORDERED: SUBLIMAZE ONE (20:43)
[2017-02-22] MEDS ORDERED: ZOFRAN ONE (20:51)
[2017-02-22] MEDS ORDERED: ANCEF ONE ×2 (20:52)
--- NOTE | 2017-02-22 21:58 | Post Operative Note ---
Pre-op diagnosis: Non-healing right BKA stump Post-op diagnosis: same Procedure: Right AKA Anesthesia: other (gen by LMA) Surgeon: ELVIS GOETZ Estimated blood loss: other (250 ml) Pathology: list (Right BKA stump) Specimen disposition: to lab Condition: stable Disposition: PACU
[2017-02-22] MEDS ORDERED: ZOFRAN IV PRN (21:59)
[2017-02-22] MEDS ORDERED: TYLENOL PO PRN (21:59)
[2017-02-22] MEDS ORDERED: MORPHINE IV PRN ×2 (21:59→22:04)
[2017-02-22] MEDS ORDERED: APRESOLINE IV PRN (21:59)
[2017-02-22] MEDS ORDERED: DILAUDID IV PRN (22:31)
[2017-02-22] MEDS ORDERED: DILAUDID ONE (22:34)
[2017-02-22] MEDS ORDERED: NACL 0.9% 1000 ML 1,000 ML ONE (23:23)
[2017-02-23 05:58] LABS: Anion Gap 27 mmol/L; BUN/Creatinine Ratio 29; Blood Urea Nitrogen 26 mg/dL (9-20); Calcium 8.8 mg/dL (8.4-10.2); Carbon Dioxide 19 mmol/L (22-30); Chloride 101.3 mmol/L (98-107); Glucose 309 mg/dL (75-100); Potassium 4.7 mmol/L (3.6-5.0); Sodium 143 mmol/L (137-145)
[2017-02-23 06:00] LABS: Basophils % (Auto) 0.4 % (0.0-1.8); Eosinophils % (Auto) 0.1 % (0.0-4.3); Hematocrit 29.1 % (35.5-45.6); Hemoglobin 9.2 gm/dl (11.8-15.2); Mean Corpuscular HGB Conc 32 % (32-34); Mean Corpuscular Volume 77 fl (84-94); Platelet Count 674 K/mm3 (140-440); Red Blood Count 3.77 M/mm3 (3.65-5.03); Red Cell Distribution Width 17.6 % (13.2-15.2); White Blood Count 16.7 K/mm3 (4.5-11.0)
[2017-02-23 06:02] LABS: Mean Corpuscular Hemoglobin 24 pg (28-32)
[2017-02-23] MEDS: NACL 0.9% 1000 ML 1,000 ML IV SCH (06:45)
[2017-02-23 11:52] VITALS: BP 152/64
--- NOTE | 2017-02-26 10:44 | Operative Report ---
Operative Report Operative Report: Date of operation: 02/22/2017 Preoperative diagnosis: Nonhealing ulcer of right BKA stump Postoperative diagnosis: Same Operation: Right above-knee amputation Surgeon: Jose Shelton M.D. Findings: Tissue perfusion at the level of the AKA was felt to be adequate. Anesthesia: Gen. by LMA EBL: 250 mL There were no complications, drains or cultures. Description of procedure: Patient was placed supine on the operating room table. After adequate general anesthesia was obtained, his right lower extremity was prepped and draped in the usual sterile fashion. A fishmouth incision was then made over the right mid thigh. The incision was extended through the subcutaneous fat down to the muscular fascia with the Bovie. The fascia and underlying muscle was transected with the Bovie as well. The superficial femoral artery and vein were identified medially. These were clamped, divided and doubly ligated with ties of 0 silk. A periosteal elevator was then used to elevate the periosteum off of the femur. The femur was transected high with a bone saw. Bone wax was placed in the transected femur for hemostasis. The remainder of the soft tissue posteriorly was transected using an amputation knife. Several arterial bleeders were clamped and ligated with suture ligatures of 2-0 silk. The distal right thigh and BKA stump were passed off the table. The wound was irrigated and checked for hemostasis which was excellent. Anterior and posterior fascia were approximated with interrupted sutures of 3-0 Vicryl. Skin was approximated with jose. A large fluffy dressing was applied and this was secured with a Kerlix roll and Coban. Patient tolerated the procedure well. He was taken to PACU in stable condition.
--- NOTE | 2017-02-26 10:48 | Discharge Summary ---
Providers - Providers Date of Admission: 02/22/17 22:06 Date of discharge: 02/23/17 Attending physician: ELVIS GOETZ Primary care physician: ELVIS GOETZ Hospitalization Condition: Fair Pertinent studies: none Procedures: Right AKA on 02/22/2017 Hospital course: Unremarkable Disposition: DC-01 TO HOME OR SELFCARE Time spent for discharge: 25 minutes - Discharge Diagnoses (1) Alzheimer's dementia Status: Chronic Qualifiers: Alzheimer's disease onset: late-onset Dementia behavioral disturbance: with behavioral disturbance Qualified Code(s): G30.1 - Alzheimer's disease with late onset; F02.81 - Dementia in other diseases classified elsewhere with behavioral disturbance; F02.81 - Dementia in other diseases classified elsewhere with behavioral disturbance; F02.81 - Dementia in other diseases classified elsewhere with behavioral disturbance (2) Anemia Status: Chronic Qualifiers: Anemia type: iron deficiency Iron deficiency anemia type: chronic blood loss Qualified Code(s): D50.0 - Iron deficiency anemia secondary to blood loss (chronic) (3) Diabetes mellitus Status: Chronic Qualifiers: Diabetes mellitus type: type 2 Diabetes mellitus complication status: with circulatory complication Diabetes mellitus complication detail: with other circulatory complications (4) 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 Absent: rub, click - Extremities Extremities: abnormal (S/p bilateral AKA) - Abdominal General gastrointestinal: Present: soft, non-tender, non-distended, normal bowel sounds Male genitourinary: Present: normal - Integumentary Integumentary: Present: clear, warm, dry - Musculoskeletal Musculoskeletal: gait normal, strength equal bilaterally - Psychiatric Psychiatric: other (+ for dementia with intermittent agitation) Plan Activity: no restrictions Weight Bearing Status: Non-Weight Bearing Diet: diabetic Wound: keep clean and dry Follow up with: ELVIS GOETZ MD [Primary Care Provider] - 7 Days
== END 2017-02-23 16:50 | disposition home or self-care (01) ==
LOC: OR 12:22 → 3B-SURG 22:06
PROVIDERS: ADMIT Surgery; ATTEND Surgery
DX: T87.89 Other complications of amputation stump (principal); L98.499 Non-pressure chronic ulcer of skin of other sites with unspecified severity; I10 Essential (primary) hypertension; G30.9 Alzheimer's disease, unspecified; F02.80 Dementia in other diseases classified elsewhere, unspecified severity, without behavioral disturbance, psychotic disturbance, mood disturbance, and anxiety; D64.9 Anemia, unspecified; E11.9 Type 2 diabetes mellitus without complications; Y83.8 Other surgical procedures as the cause of abnormal reaction of the patient, or of later complication, without mention of misadventure at the time of the procedure; Y92.89 Other specified places as the place of occurrence of the external cause
CPT/HCPCS: 27590; 36415; 80048; 82962; 85025; 88307; 88311; 96372; 96374; G0378; J0690; J1170; J2270; J2405; J3010; J7030; J1815

== ENCOUNTER 2017-03-10 09:04 | Outpatient (CLI) | payer MEDICARE ==
[2017-03-10] MEDS ORDERED: XYLOCAINE 1% 20 mL ONE (09:18)
[2017-03-10] MEDS ORDERED: XYLOCAINE TOPICAL 4% TP ONE (15:55)
== END 2017-03-10 09:05 | disposition home or self-care (01) ==
LOC: WOUND 09:04
PROVIDERS: ATTEND Surgery
DX: T87.89 Other complications of amputation stump (principal); E11.622 Type 2 diabetes mellitus with other skin ulcer; L97.811 Non-pressure chronic ulcer of other part of right lower leg limited to breakdown of skin; F03.90 Unspecified dementia, unspecified severity, without behavioral disturbance, psychotic disturbance, mood disturbance, and anxiety; E78.5 Hyperlipidemia, unspecified; I10 Essential (primary) hypertension; Z87.891 Personal history of nicotine dependence; Z86.73 Personal history of transient ischemic attack (TIA), and cerebral infarction without residual deficits; Y83.5 Amputation of limb(s) as the cause of abnormal reaction of the patient, or of later complication, without mention of misadventure at the time of the procedure
CPT/HCPCS: 99214; G0463

== ENCOUNTER 2017-03-17 09:17 | Outpatient (CLI) | payer MEDICARE ==
[2017-03-17] MEDS ORDERED: XYLOCAINE TOPICAL 4% TP ONE (10:23)
== END 2017-03-17 09:18 | disposition home or self-care (01) ==
LOC: WOUND 09:17
PROVIDERS: ATTEND Surgery
DX: E11.622 Type 2 diabetes mellitus with other skin ulcer (principal); L97.813 Non-pressure chronic ulcer of other part of right lower leg with necrosis of muscle; L97.224 Non-pressure chronic ulcer of left calf with necrosis of bone; F03.90 Unspecified dementia, unspecified severity, without behavioral disturbance, psychotic disturbance, mood disturbance, and anxiety; I10 Essential (primary) hypertension; E78.5 Hyperlipidemia, unspecified; Z87.891 Personal history of nicotine dependence; Z89.512 Acquired absence of left leg below knee; Z89.511 Acquired absence of right leg below knee; Z86.73 Personal history of transient ischemic attack (TIA), and cerebral infarction without residual deficits
CPT/HCPCS: 97597

== ENCOUNTER 2017-03-24 09:11 | Outpatient (CLI) | payer MEDICARE ==
[2017-03-24] MEDS ORDERED: XYLOCAINE TOPICAL 4% TP ONE ×2 (09:50→10:04)
== END 2017-03-24 09:12 | disposition home or self-care (01) ==
LOC: WOUND 09:11
PROVIDERS: ATTEND Surgery
DX: E11.622 Type 2 diabetes mellitus with other skin ulcer (principal); L98.491 Non-pressure chronic ulcer of skin of other sites limited to breakdown of skin; I10 Essential (primary) hypertension; E78.5 Hyperlipidemia, unspecified; F03.90 Unspecified dementia, unspecified severity, without behavioral disturbance, psychotic disturbance, mood disturbance, and anxiety; Z89.512 Acquired absence of left leg below knee; Z89.511 Acquired absence of right leg below knee; Z87.891 Personal history of nicotine dependence; Z86.73 Personal history of transient ischemic attack (TIA), and cerebral infarction without residual deficits
CPT/HCPCS: 99215; G0463

== ENCOUNTER 2017-03-31 09:18 | Outpatient (CLI) | payer MEDICARE ==
[2017-03-31] MEDS ORDERED: XYLOCAINE TOPICAL 5% TP ONE (09:38)
[2017-03-31] MEDS ORDERED: XYLOCAINE TOPICAL 4% TP ONE (09:41)
== END 2017-03-31 09:19 | disposition home or self-care (01) ==
LOC: WOUND 09:18
PROVIDERS: ATTEND Surgery
DX: E11.622 Type 2 diabetes mellitus with other skin ulcer (principal); L98.491 Non-pressure chronic ulcer of skin of other sites limited to breakdown of skin; F03.90 Unspecified dementia, unspecified severity, without behavioral disturbance, psychotic disturbance, mood disturbance, and anxiety; E78.5 Hyperlipidemia, unspecified; I10 Essential (primary) hypertension; Z89.512 Acquired absence of left leg below knee; Z86.73 Personal history of transient ischemic attack (TIA), and cerebral infarction without residual deficits; Z89.511 Acquired absence of right leg below knee; Z87.891 Personal history of nicotine dependence
CPT/HCPCS: 99215; G0463

== ENCOUNTER 2017-04-14 09:01 | Outpatient (CLI) | payer MEDICARE ==
[2017-04-14] MEDS ORDERED: XYLOCAINE TOPICAL 4% TP ONE ×2 (09:46→10:04)
== END 2017-04-14 09:02 | disposition home or self-care (01) ==
LOC: WOUND 09:01
PROVIDERS: ATTEND Surgery
DX: E11.622 Type 2 diabetes mellitus with other skin ulcer (principal); L98.491 Non-pressure chronic ulcer of skin of other sites limited to breakdown of skin; L97.813 Non-pressure chronic ulcer of other part of right lower leg with necrosis of muscle; L97.224 Non-pressure chronic ulcer of left calf with necrosis of bone; L89.153 Pressure ulcer of sacral region, stage 3; F03.90 Unspecified dementia, unspecified severity, without behavioral disturbance, psychotic disturbance, mood disturbance, and anxiety; I10 Essential (primary) hypertension; E78.5 Hyperlipidemia, unspecified; Z89.512 Acquired absence of left leg below knee; Z89.511 Acquired absence of right leg below knee; Z86.73 Personal history of transient ischemic attack (TIA), and cerebral infarction without residual deficits; Z87.891 Personal history of nicotine dependence
CPT/HCPCS: 97597